=== PATIENT | female | born 2000 | race Caucasian/White ===

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

== ENCOUNTER 2020-06-09 17:47 | Emergency (ER) | payer BC ==
[~2020-06-09] VITALS: Wt 50.8 kg
[2020-06-09 17:53] VITALS: BP 131/73
[2020-06-09] MEDS ORDERED: PROZAC40 M1 PO (17:54)
[2020-06-09 18:28] LABS: BASO % 0.4 % (0.0-1.0); EOS # 0.1 10*3/uL (0.0-0.4); HEMATOCRIT 37.7 % (37.0-47.0); LYMPH # 1.3 10*3/uL (1.3-4.4); LYMPH % 27.3 % (27.0-41.0); MEAN CELL VOLUME 86.9 fl (81.0-99.0); MEAN CORPUSCULAR HGB 28.1 pg (27.0-31.0); MEAN CORPUSCULAR HGB CONC 32.4 g/dl (33.0-37.0); MEAN PLATELET VOLUME 10.3 fl (9.6-12.3); MONO # 0.4 10*3/uL (0.1-1.0); MONO % 7.2 % (3.0-9.0); NEUT # 3.1 10*3/uL (2.3-7.9); NEUT % 64.1 % (47.0-73.0); PLATELET COUNT AUTOMATED 251 10*3/uL (130-400); RED BLOOD COUNT 4.34 10*6/uL (4.10-5.10); WHITE BLOOD COUNT 4.8 10*3/uL (4.8-10.8)
[2020-06-09 18:38] LABS: INTERNATIONAL NORM RATIO 0.9 (2.0-3.5)
[2020-06-09 18:44] LABS: ALBUMIN 3.6 gm/dl (3.1-4.5); ALKALINE PHOSPHATASE 66 U/L (45-117); BUN 14 mg/dl (7-24); CHLORIDE 106 mmol/L (98-107); CREATININE 0.83 mg/dL (0.55-1.02); POTASSIUM 3.5 mmol/L (3.5-5.1); SGOT/AST 14 IU/L (3-35); SGPT/ALT 20 U/L (12-78); SODIUM 140 mmol/L (136-145); TOTAL PROTEIN 7.6 gm/dL (6.4-8.2)
[2020-06-09 18:45] LABS: B-hCG (QUALITATIVE) NEGATIVE (NEGATIVE)
[2020-06-09 18:49] LABS: TROPONIN I < 0.015 ng/ml (<0.045)
[2020-06-09 19:42] LABS: BILIRUBIN Negative (Negative); BLOOD 1+ (Negative); CLARITY Clear (Clear); COLOR Yellow (Yellow); GLUCOSE Negative (Negative); KETONE Negative (Negative); LEUKO ESTERASE 1+ (Negative); NITRITE Negative (Negative); PH 6.5 (4.5-8.0); SPECIFIC GRAVITY 1.025 (1.001-1.030)
[2020-06-09 19:47] LABS: BACTERIA 1+; MUCOUS TRACE
[2020-06-09 19:50] LABS: URINE AMPHETAMINES < 1000 (1000ng/ml); URINE BARBITURATES < 200 (200ng/ml); URINE BENZODIAZEPINES < 200 (200ng/ml); URINE CANNABINOIDS (THC) < 50 (50ng/ml); URINE COCAINE < 300 (300ng/ml); URINE METHADONE < 300 (300ng/ml); URINE OPIATES < 300 (300ng/ml)
[2020-06-09 19:55] LABS: URINE PHENCYCLIDINE < 25 (25ng/ml)
== END 2020-06-09 21:15 | disposition home or self-care (01) ==
LOC: ED 17:47
PROVIDERS: Physician Assistant
DX: R55 Syncope and collapse (principal); J45.909 Unspecified asthma, uncomplicated; F41.9 Anxiety disorder, unspecified

== ENCOUNTER 2020-10-24 13:00 | Emergency (ER) | payer BC ==
[~2020-10-24] VITALS: Ht 157.4 cm; Wt 54.4 kg
[~2020-10-24 13:00] MED LIST changes: +PROZAC40 M1 PO
[2020-10-24 13:29] VITALS: BP 106/60
[2020-10-24 14:35] LABS: BASO % 0.4 % (0.0-1.0); EOS # 0.1 10*3/uL (0.0-0.4); EOS % 1.2 % (1.0-4.0); HEMATOCRIT 37.3 % (37.0-47.0); LYMPH # 1.6 10*3/uL (1.3-4.4); LYMPH % 28.8 % (27.0-41.0); MEAN CELL VOLUME 86.1 fl (81.0-99.0); MEAN CORPUSCULAR HGB 27.5 pg (27.0-31.0); MEAN CORPUSCULAR HGB CONC 31.9 g/dl (33.0-37.0); MEAN PLATELET VOLUME 10.9 fl (9.6-12.3); MONO # 0.3 10*3/uL (0.1-1.0); MONO % 5.8 % (3.0-9.0); NEUT # 3.6 10*3/uL (2.3-7.9); NEUT % 63.6 % (47.0-73.0); PLATELET COUNT AUTOMATED 243 10*3/uL (130-400); RED BLOOD COUNT 4.33 10*6/uL (4.10-5.10); RED CELL DISTRI WIDTH 13.2 % (0-14.5); WHITE BLOOD COUNT 5.7 10*3/uL (4.8-10.8)
[2020-10-24 14:53] LABS: ALBUMIN 3.9 gm/dl (3.1-4.5); ALKALINE PHOSPHATASE 60 U/L (45-117); BUN 8 mg/dl (7-24); CHLORIDE 109 mmol/L (98-107); CREATININE 0.71 mg/dL (0.55-1.02); POTASSIUM 3.7 mmol/L (3.5-5.1); SGOT/AST 15 IU/L (3-35); SGPT/ALT 25 U/L (12-78); SODIUM 140 mmol/L (136-145); TOTAL PROTEIN 7.4 gm/dL (6.4-8.2)
[2020-10-24 14:57] LABS: BETA-HCG, QUANT < 1.0 mIU/mL (1-3)
[2020-10-24] MEDS ORDERED: PROPRANOLOL HCL60 MG PO (15:07)
[2020-10-24] MEDS ORDERED: VIENVA-28 TABL1 EACH PO (15:07)
[2020-10-24] MEDS ORDERED: AVPAK LEVETIRA750 M1 PO (15:08)
[2020-10-24] MEDS ORDERED: VITAMIN D (15:08)
[2020-10-24] MEDS ORDERED: CITALOPRAM HYDR40 MG PO (15:09)
[2020-10-24] MEDS ORDERED: SUMATRIPTAN SUC50 M1 PO (15:10)
[2020-10-24] MEDS ORDERED: LORAZEPAM1 MG PO (15:10)
== END 2020-10-24 16:00 | disposition home or self-care (01) ==
LOC: ED 13:00
PROVIDERS: Physician Assistant
DX: N93.8 Other specified abnormal uterine and vaginal bleeding (principal); Z79.899 Other long term (current) drug therapy

== ENCOUNTER → 2021-01-13 | Outpatient (CLI) | payer BC ==
[~2021-01-13] MED LIST changes: +AVPAK LEVETIRA750 M1 PO; +CITALOPRAM HYDR40 MG PO; +LORAZEPAM1 MG PO; +PROPRANOLOL HCL60 MG PO; +SUMATRIPTAN SUC50 M1 PO; +VIENVA-28 TABL1 EACH PO; +VITAMIN D
== END | disposition home or self-care (01) ==
LOC: LAB 10:52
PROVIDERS: ATTEND Internal Medicine
DX: N91.2 Amenorrhea, unspecified (principal)

== ENCOUNTER → 2022-06-11 | Outpatient (CLI) | payer BC | END | disposition home or self-care (01) | LOC: LAB 10:10 | PROVIDERS: ATTEND Psychiatry & Neurology Neurology | DX: G40.909 Epilepsy, unspecified, not intractable, without status epilepticus (principal) ==

== ENCOUNTER 2022-10-12 14:04 | Emergency (ER) | payer BC ==
[~2022-10-12] VITALS: Ht 160 cm; Wt 54.4 kg
[2022-10-12 14:11] VITALS: BP 110/63
[2022-10-12] MEDS ORDERED: DIFLUCAN150 MG PO (14:30)
== END 2022-10-12 14:36 | disposition home or self-care (01) ==
LOC: ED 14:04
DX: B37.31 Acute candidiasis of vulva and vagina (principal); J45.909 Unspecified asthma, uncomplicated; Z79.899 Other long term (current) drug therapy

== ENCOUNTER 2023-03-10 15:37 | Emergency (ER) | payer BC ==
[~2023-03-10] VITALS: Ht 160 cm; Wt 53.1 kg
[~2023-03-10 15:37] MED LIST changes: +DIFLUCAN150 MG PO
[2023-03-10 17:29] VITALS: BP 106/65
[2023-03-10] MEDS ORDERED: XANAX1 MG PO (17:34)
[2023-03-10 17:56] LABS: BASO % 0.2 % (0.0-1.0); EOS % 0.4 % (1.0-4.0); HEMATOCRIT 35.5 % (37.0-47.0); LYMPH # 1.5 10*3/uL (1.3-4.4); LYMPH % 27.1 % (27.0-41.0); MEAN CELL VOLUME 86.4 fl (81.0-99.0); MEAN CORPUSCULAR HGB 28.5 pg (27.0-31.0); MEAN PLATELET VOLUME 10.1 fl (9.6-12.3); MONO # 0.3 10*3/uL (0.1-1.0); NEUT # 3.7 10*3/uL (2.3-7.9); NEUT % 66.9 % (47.0-73.0); PLATELET COUNT AUTOMATED 194 10*3/uL (130-400); RED BLOOD COUNT 4.11 10*6/uL (4.10-5.10); RED CELL DISTRI WIDTH 12.6 % (0-14.5); WHITE BLOOD COUNT 5.6 10*3/uL (4.8-10.8)
[2023-03-10 18:37] LABS: BILIRUBIN Negative (Negative); BLOOD Trace-Lysed (Negative); CLARITY Turbid (Clear); COLOR Yellow (Yellow); GLUCOSE Negative (Negative); KETONE 2+ (Negative); LEUKO ESTERASE 2+ (Negative); NITRITE Negative (Negative); PH 5.5 (4.5-8.0); SPECIFIC GRAVITY >= 1.030 (1.001-1.030)
[2023-03-10 19:32] LABS: BACTERIA 4+; WBC 41-50 wbc/hpf (0-5)
== END 2023-03-10 21:11 | disposition left against medical advice (07) ==
LOC: ED 15:37
PROVIDERS: Emergency Medicine
DX: O46.91 Antepartum hemorrhage, unspecified, first trimester (principal); O23.41 Unspecified infection of urinary tract in pregnancy, first trimester; N39.0 Urinary tract infection, site not specified; F41.9 Anxiety disorder, unspecified; J45.909 Unspecified asthma, uncomplicated; Z3A.12 12 weeks gestation of pregnancy

== ENCOUNTER → 2023-04-04 | Outpatient (CLI) | payer BC, OTHER ==
[~2023-04-04] MED LIST changes: +XANAX1 MG PO
== END | disposition home or self-care (01) ==
LOC: CARD 01:01
PROVIDERS: ATTEND Internal Medicine
DX: I47.10 Supraventricular tachycardia, unspecified (principal)

== ENCOUNTER → 2023-07-17 | Outpatient (CLI) | payer BC, OTHER | END | disposition home or self-care (01) | LOC: CARD 10:27 | PROVIDERS: ATTEND Internal Medicine Cardiovascular Disease | DX: R00.2 Palpitations (principal) ==